=== PATIENT | female | born 1995 | race Caucasian/White ===

== ENCOUNTER 2017-01-22 07:27 | Day surgery (SDC) | payer BC ==
[~2017-01-22 07:27] MED LIST: BYDUREON P2 MG/0.65; CITALOPRAM HBR20 M1 PO; FARXIGA10 M1 PO; METFORMIN HCL1000 M2 PO; STARLIX120 M1 PO; TOUJEO SOL300 UNIT/1 SC; TRI-SPRINTEC T1 EACH PO; ULTRAM50 M1 PO
[2017-01-31] MEDS ORDERED: OXYCODONE-ACET500 ML PO (00:01)
== END 2017-01-22 15:05 ==
LOC: SHSB 07:27 → PACU 11:55 → SHSB 12:32
PROC: 0CTPXZZ Resection of Tonsils, External Approach (ICD-10-PCS; principal; 2017-01-22)
PROC: 097G4ZZ Dilation of Left Eustachian Tube, Percutaneous Endoscopic Approach (ICD-10-PCS; 2017-01-22)
PROC: 097F4ZZ Dilation of Right Eustachian Tube, Percutaneous Endoscopic Approach (ICD-10-PCS; 2017-01-22)
DX: J35.01 Chronic tonsillitis (principal); H69.83 Other specified disorders of Eustachian tube, bilateral; G43.909 Migraine, unspecified, not intractable, without status migrainosus; E11.9 Type 2 diabetes mellitus without complications; F32.9 Major depressive disorder, single episode, unspecified; H66.93 Otitis media, unspecified, bilateral; Z79.4 Long term (current) use of insulin; Z79.84 Long term (current) use of oral hypoglycemic drugs; Z79.899 Other long term (current) drug therapy; Z88.1 Allergy status to other antibiotic agents; Z87.442 Personal history of urinary calculi; Z98.890 Other specified postprocedural states
CPT/HCPCS: C1726

== ENCOUNTER 2017-01-31 23:21 | Emergency (ER) | payer BC ==
[~2017-01-31 23:21] MED LIST changes: +OXYCODONE-ACET500 ML PO
[2017-02-01] MEDS ORDERED: HYDROCODON-ACET15 M1 PO (20:44)
== END 2017-02-01 00:23 ==
LOC: EDMED 23:21
DX: G89.18 Other acute postprocedural pain (principal); E11.9 Type 2 diabetes mellitus without complications; Z79.4 Long term (current) use of insulin
CPT/HCPCS: J1170

== ENCOUNTER 2017-02-27 01:03 | Emergency (ER) | payer BC ==
[~2017-02-27 01:03] MED LIST changes: +HYDROCODON-ACET15 M1 PO
[2017-02-27 02:31] LABS: PREGNANCY-SERUM NEGATIVE (NEGATIVE)
[2017-02-27 02:35] LABS: BASO % 0.4 % (0-2); BASO ABSOLUTE COUNT 0.1 tho/cmm (0.0-0.2); EOS % 1.4 % (0-7); EOSINOPHIL ABSOLUTE COUNT 0.2 tho/cmm (0.0-0.7); HGB-HEMOGLOBIN 13.9 gm/dl (12.0-15.5); IMMATURE GRANULOCYTES ABSOLUTE 0.08 tho/cmm (0-0.03); IMMATURE GRANULOCYTES PERCENT 0.5 % (0-0.3); LYMPH % 28.5 % (20-45); LYMPH ABSOLUTE COUNT 4.7 tho/cmm (0.8-4.5); MCH (MEAN CORPUSCULAR HGB) 27.7 pg (28.0-32.0); MCHC MEAN CORPUSCULAR HGB CONC 33.9 % (32.0-36.0); MCV (MEAN CELL VOLUME) 81.8 fl (82.0-96.0); MEAN PLATELET VOLUME 10.3 cmc (9.4-12.4); MONO % 7.9 % (0-12); MONOCYTE ABSOLUTE COUNT 1.3 tho/cmm (0.0-1.2); NEUTROPHIL ABSOLUTE COUNT 10.1 tho/cmm (1.6-8.0); NEUTROPHIL-AUTOMATED 10.1 tho/cmm (1.6-8.0); NEUTROPHILS % 61.3 % (40-80); PLATELET COUNT 401 tho/cmm (150-450); RED BLOOD COUNT 5.01 mil/cmm (4.00-5.20); RED CELL DISTRIBUTION WIDTH 15.1 % (12.4-16.4); WHITE BLOOD COUNT 16.4 tho/cmm (4.0-10.0)
[2017-02-27 02:42] LABS: ANION GAP 16 mmol/L (0-20); BLOOD UREA NITROGEN 19 mg/dl (6-24); C-REACTIVE PROTEIN 1.4 mg/dl (0-0.9); CALCIUM 9.1 mg/dl (8.5-10.5); CARBON DIOXIDE-VENOUS 19 mmol/L (22-32); CHLORIDE 108 mmol/l (96-110); CREATININE 0.68 mg/dl (0.50-1.10); GLUCOSE 102 mg/dL (70-110); POTASSIUM 3.7 mmol/L (3.7-5.1); SODIUM 139 mmol/L (135-145); eGFR VALUE FOR BLACK >90 mL/Min
== END 2017-02-27 04:50 ==
LOC: EDMED 01:03
PROVIDERS: Emergency Medicine
DX: R51 Headache (principal); M54.2 Cervicalgia; R42 Dizziness and giddiness
CPT/HCPCS: J1200; J1885; J2405; J2765; J7030